=== PATIENT | male | born 1975 | race Caucasian/White ===

== ENCOUNTER 2021-02-20 06:00 | Outpatient (RCR) | payer OTHER, SELFPAY | END 2021-03-13 23:59 | disposition home or self-care (01) | LOC: MPT 06:00 | PROVIDERS: Referring Provider Family Medicine; Visit Provider Family Medicine | DX: N52.1 Erectile dysfunction due to diseases classified elsewhere (principal); G37.3 Acute transverse myelitis in demyelinating disease of central nervous system; F52.32 Male orgasmic disorder | CPT/HCPCS: 97140; 97161; 97530 ==

== ENCOUNTER 2021-03-14 06:00 | Outpatient (RCR) | payer OTHER, SELFPAY | END 2021-04-12 23:59 | disposition home or self-care (01) | LOC: MPT 06:00 | PROVIDERS: Referring Provider Family Medicine; Visit Provider Family Medicine | DX: N52.1 Erectile dysfunction due to diseases classified elsewhere (principal); G37.3 Acute transverse myelitis in demyelinating disease of central nervous system; F52.32 Male orgasmic disorder | CPT/HCPCS: 97110; 97140; 97530 ==

== ENCOUNTER 2021-04-13 06:00 | Outpatient (RCR) | payer OTHER, SELFPAY | END 2021-05-13 23:59 | disposition home or self-care (01) | LOC: MPT 06:00 | PROVIDERS: Referring Provider Family Medicine; Visit Provider Family Medicine | DX: N52.1 Erectile dysfunction due to diseases classified elsewhere (principal); G37.3 Acute transverse myelitis in demyelinating disease of central nervous system | CPT/HCPCS: 97140; 97530 ==

== ENCOUNTER 2021-05-14 06:00 | Outpatient (RCR) | payer OTHER, SELFPAY | END 2021-06-13 23:59 | disposition home or self-care (01) | LOC: MPT 06:00 | PROVIDERS: Referring Provider Family Medicine; Visit Provider Family Medicine | DX: N52.1 Erectile dysfunction due to diseases classified elsewhere (principal); G37.3 Acute transverse myelitis in demyelinating disease of central nervous system | CPT/HCPCS: 97110; 97140; 97530 ==

== ENCOUNTER → 2021-07-25 13:52 | Outpatient (BNVA) | payer OTHER, SELFPAY | PROVIDERS: Referring Provider Family Medicine; Visit Provider Podiatrist Foot & Ankle Surgery | DX: M19.071 Primary osteoarthritis, right ankle and foot (principal) | CPT/HCPCS: 73630 ==

== ENCOUNTER 2022-08-28 06:00 | Outpatient (RCR) | payer OTHER, SELFPAY | END 2022-09-12 23:59 | disposition home or self-care (01) | LOC: SPT 06:00 | PROVIDERS: Visit Provider Family Medicine | DX: G70.9 Myoneural disorder, unspecified (principal); G37.3 Acute transverse myelitis in demyelinating disease of central nervous system; N52.1 Erectile dysfunction due to diseases classified elsewhere; K56.41 Fecal impaction | CPT/HCPCS: 97110; 97140; 97161; 97530 ==

== ENCOUNTER 2022-09-13 06:00 | Outpatient (RCR) | payer OTHER, SELFPAY | END 2022-10-13 23:59 | disposition home or self-care (01) | LOC: SPT 06:00 | PROVIDERS: Visit Provider Family Medicine | DX: G70.9 Myoneural disorder, unspecified (principal); G37.3 Acute transverse myelitis in demyelinating disease of central nervous system; K56.41 Fecal impaction | CPT/HCPCS: 97110; 97140; 97530 ==

== ENCOUNTER 2022-11-14 06:00 | Outpatient (RCR) | payer OTHER, SELFPAY | END 2022-12-11 23:59 | disposition home or self-care (01) | LOC: SPT 06:00 | PROVIDERS: Visit Provider Family Medicine | DX: G70.9 Myoneural disorder, unspecified (principal) | CPT/HCPCS: 97110; 97116; 97140; 97530 ==

== ENCOUNTER 2022-12-12 06:00 | Outpatient (RCR) | payer OTHER, SELFPAY | END 2023-01-11 23:59 | disposition home or self-care (01) | LOC: SPT 06:00 | PROVIDERS: Visit Provider Family Medicine | DX: G70.9 Myoneural disorder, unspecified (principal); N52.1 Erectile dysfunction due to diseases classified elsewhere; K56.41 Fecal impaction | CPT/HCPCS: 97110; 97140; 97530; 97535 ==

== ENCOUNTER 2023-02-11 08:18 | Outpatient (RCR) | payer OTHER, SELFPAY | END 2023-03-13 23:59 | disposition home or self-care (01) | LOC: SPT 08:18 | PROVIDERS: Visit Provider Family Medicine | DX: G70.9 Myoneural disorder, unspecified (principal); N52.1 Erectile dysfunction due to diseases classified elsewhere | CPT/HCPCS: 97110; 97140; 97530 ==